=== PATIENT | female | born 1950 | race Caucasian/White ===

== ENCOUNTER → 2020-08-22 | Outpatient (CLI) | payer MEDICARE, OTHER ==
[~2020-08-22] MED LIST: ADULT LOW DOSE81 MG PO; BIOTIN5 MG PO; CELEXA40 MG PO; CLARITIN10 MG PO; HYZAAR 100-251 EACH PO; LOPRESSOR 25 MG25 MG PO; NORCO 7.5-3251 EACH PO; THERAGRAN TAB1 EA PO; VIACTIV SOFT C1 EACH PO; VITAMIN B-1000 MCG/M IM; VOLTAREN EC 7575 MG PO; XARELTO10 MG PO
== END ==
LOC: MAMO 08-12 08:30
DX: Z12.31 Encounter for screening mammogram for malignant neoplasm of breast (principal)
CPT/HCPCS: 77063; 77067

== ENCOUNTER → 2021-09-02 | Outpatient (CLI) | payer MEDICARE, OTHER | LOC: MAMO 08:05 | DX: Z12.31 Encounter for screening mammogram for malignant neoplasm of breast (principal) | CPT/HCPCS: 77063; 77067 ==